=== PATIENT | female | born 1970 | race Caucasian/White ===

== ENCOUNTER 2022-04-09 18:50 | Emergency (ER) | payer BC ==
[~2022-04-09] VITALS: Ht 170.2 cm; Wt 92.5 kg
[2022-04-09] MEDS ORDERED: diphenhydrAMINE 50 MG/ML VIAL IVP ONE (19:15)
[2022-04-09] MEDS ORDERED: methylPREDNISolone SOD SUCC PF 125 MG/2 ML VIAL. IV ONE (19:15)
--- NOTE | 2022-04-09 19:26 | PHYS DOC ---
General Adult EDM: Chief Complaint: ALLERGIC REACTION HPI: HPI: Patient is a 51-year-old female coming in for upper lip swelling that started over 8 hours prior to arrival. Patient been starting to expand towards her nose. Denies any tongue or throat swelling. Patient is a history of allergic reactions involve eye swelling or hives. Patient was started on Cipro for urinary tract infection 3 days ago. Has had Cipro multiple times in the past. Patient also takes lisinopril for years. Review of Systems: Review of Systems: All other systems within normal limits except for as noted in the HPI Current Medications: Current Meds: Current Medications Medications (Trade) Dose Ordered Sig/Bony Start Time Stop Time Status Last Admin Dose Admin Diphenhydramine HCl (Benadryl) 50 mg 1X ONCE 04/09/22 19:15 04/09/22 19:16 UNV Epinephrine HCl (EPINEPHrine AMPULE) 0.3 mg 1X ONCE 04/09/22 19:15 04/09/22 19:16 UNV Methylprednisolone Sodium Succinate (SOLU-Medrol 125MG VIAL) 125 mg 1X ONCE 04/09/22 19:15 04/09/22 19:16 UNV Physical Exam: PE: Constitutional: Well developed, well nourished, no acute distress, non-toxic appearance. [] HENT: Normocephalic, atraumatic, bilateral external ears normal, nose normal. Swelling of upper lip, no swelling of tongue or upper airway. [] Eyes: PERRLA, conjunctiva normal, no discharge. [] Neck: No rigidity, supple, no stridor. [] Cardiovascular: Regular rate and rhythm, brisk cap refill [] Lungs & Thorax: Non labored symmetric respirations, no tachypnea or respiratory distress [] Abdomen: Soft, nondistended. Skin: Warm, dry, no erythema, no rash. [] Back: Unremarkable Extremities: No deformities, range of motion grossly intact, no lower extremity edema [] Neurologic: Alert and oriented X 3, no focal deficits noted. [] Psychologic: Affect normal, judgement normal, mood normal. [] EKG: EKG: [] Radiology/Procedures: Radiology/Procedures: [] Heart Score: C/O Chest Pain: No Risk Factors: Risk Factors: DM, Current or recent (<one month) smoker, HTN, HLP, family history of CAD, obesity. Risk Scores: Score 0 - 3: 2.5% MACE over next 6 weeks - Discharge Home Score 4 - 6: 20.3% MACE over next 6 weeks - Admit for Clinical Observation Score 7 - 10: 72.7% MACE over next 6 weeks - Early Invasive Strategies Course & Med Decision Making: Course & Med Decision Making Patient symptoms began improving after the epinephrine was given. Observed in the emergency department. About 2 hours into observation patient's symptoms began getting worse, swelling has increased in the top lip it is now spreading to the bottom. Discussed with Dr. Gaspar and will transfer the patient to [place] for monitoring in the ICU for airway protection Dragon Disclaimer: Dragon Disclaimer: This electronic medical record was generated, in whole or in part, using a voice recognition dictation system. Departure Departure: Impression: Primary Impression: Angioedema Disposition: 02 [facility] Admitting Physician: Austin Gaspar Condition: GUARDED Referrals: KYLAH VINCENT MD (PCP) ZEYAD STATON MD April 09, 2022 19:26
[2022-04-09 19:58] LABS: BASO # 0.1 x10^3/uL (0.0-0.2); BASO % 1 % (0-3); EOS # 0.1 x10^3/uL (0.0-0.7); EOS % 1 % (0-3); HEMATOCRIT 36.6 % (36.0-47.0); HEMOGLOBIN 12.4 g/dL (12.0-15.5); LYMPH # 1.8 x10^3/uL (1.0-4.8); LYMPH % 19 % (24-48); MEAN CORPUSCULAR HEMOGLOBIN 27 pg (25-35); MEAN CORPUSCULAR HGB CONC 34 g/dL (31-37); MEAN CORPUSCULAR VOLUME 81 fL (79-100); MONO # 0.7 x10^3/uL (0.0-1.1); MONO % 7 % (0-9); NEUT # 6.8 x10^3uL (1.8-7.7); NEUT % 72 % (31-73); PLATELET COUNT 335 x10^3/uL (140-400); RED BLOOD COUNT 4.54 x10^6/uL (3.50-5.40); RED CELL DISTRIBUTION WIDTH 14.3 % (11.5-14.5); WHITE BLOOD COUNT 9.4 x10^3/uL (4.0-11.0)
[2022-04-09 20:00] LABS: CALCIUM 8.8 mg/dL (8.5-10.1); CREATININE 1.9 mg/dL (0.6-1.0); GFR 27.9; POTASSIUM 3.6 mmol/L (3.5-5.1)
[2022-04-09 20:05] LABS: ALBUMIN/GLOBULIN RATIO 0.8 (1.0-1.7); TOTAL BILIRUBIN 0.4 mg/dL (0.2-1.0); TOTAL PROTEIN 6.9 g/dL (6.4-8.2)
[2022-04-09 22:30] VITALS: BP 104/56
== END 2022-04-09 23:11 | disposition short-term general hospital (02) ==
LOC: ER 18:50
DX: T78.3XXA Angioneurotic edema, initial encounter (principal); X58.XXXA Exposure to other specified factors, initial encounter
CPT/HCPCS: 36415; 80053; 85025; 96372; 96374; 96375; 99285; J0171; J1200; J2930

== ENCOUNTER 2022-04-20 09:12 | Emergency (ER) | payer BC ==
[~2022-04-20] VITALS: Ht 170.2 cm; Wt 89.5 kg
[2022-04-20] MEDS ORDERED: IV RINGERS SOLUTION,LACTATED 1,000 ML IV ONE ×2 (09:30→17:45)
--- NOTE | 2022-04-20 09:36 | PHYS DOC ---
Past History Past Surgical History: Gastric Bypass, Other Additional Past Surgical Histo: kidney transplant Alcohol Use: None General Adult EDM: Chief Complaint: ALTERED MENTAL STATUS HPI: HPI: Patient is a 51-year-old female sent in from primary care office via EMS for concerns for sepsis. Patient has had lower than usual blood pressures and altered mental status this morning. Patient states that for the past 2 weeks she has had watery diarrhea about 4-5 times per day. Also complained of epigastric abdominal pain, denies any known fevers or vomiting. Patient was hospitalized about 2 weeks ago for angioedema associated with ERUM inhibitor. Patient has a history of renal transplant at and is currently immunosuppressed. Patient states she completed antibiotics for urinary tract infection, think she was taking ciprofloxacin Review of Systems: Review of Systems: All other systems within normal limits except for as noted in the HPI Current Medications: Current Meds: Current Medications Medications (Trade) Dose Ordered Sig/Bony Start Time Stop Time Status Last Admin Dose Admin Lactated Ringer's 1,000 ml @ 1,000 mls/hr 1X ONCE 04/20/22 09:30 04/20/22 10:29 UNV Allergies: Allergies: Allergies Coded Allergies Type Severity Reaction Last Updated Verified lisinopril Allergy Severe 04/20/22 Yes Penicillins Allergy Unknown 04/09/22 Yes iodine Allergy Unknown 04/09/22 Yes legumes Allergy Unknown 04/09/22 Yes psyllium Allergy Unknown 04/09/22 Yes sulfamethoxazole Allergy Unknown 04/09/22 Yes trimethoprim Allergy Unknown 04/09/22 Yes Physical Exam: PE: Constitutional: Well developed, well nourished, no acute distress, non-toxic appearance. [] HENT: Normocephalic, atraumatic, bilateral external ears normal, nose normal. [] Eyes: PERRLA, conjunctiva normal, no discharge. [] Neck: No rigidity, supple, no stridor. [] Cardiovascular: Regular rate and rhythm, brisk cap refill [] Lungs & Thorax: Non labored symmetric respirations, no tachypnea or respiratory distress [] Abdomen: Soft, nondistended, epigastric tenderness without guarding. Skin: Warm, dry, no erythema, no rash. [] Back: Unremarkable Extremities: No deformities, range of motion grossly intact, no lower extremity edema [] Neurologic: Alert and oriented X 3, no focal deficits noted. [] Psychologic: Affect normal, judgement normal, mood normal. [] Current Patient Data: Vital Signs: Vital Signs Date Time Temp Pulse Resp B/P (MAP) Pulse Ox O2 Delivery O2 Flow Rate FiO2 04/20/22 09:29 98.7 93 18 112/66 (81) 100 Room Air EKG: EKG: [] Radiology/Procedures: Radiology/Procedures: [address] [address] IMAGING REPORT Signed PATIENT: NICKY CAMPBELL ACCOUNT: [id number] : 1970 LOCATION: ER AGE: 51 SEX: F EXAM STATUS: REG ER ORD. PHYSICIAN: ZEYAD STATON MD REASON: epigastric pain PROCEDURE: CT ABDOMEN PELVIS WO CONTRAST EXAMINATION: CT ABDOMEN+PELVIS WO INDICATION: Reason: epigastric pain / Spl. Instructions: / History: COMPARISON: None TECHNIQUE: CT images were acquired through the abdomen and pelvis. Sagittal and coronal reformatted series were provided. FINDINGS: Lung Bases: Lung bases are clear. Abdomen: The evaluation of the solid organs is limited due to lack of IV contrast. The evaluation of bowel is limited due to lack of oral contrast. Liver: Portable Gallbladder & Biliary System: Gallbladder is distended with innumerable stones. No pericholecystic inflammatory changes. No biliary ductal dilation. Spleen: Unremarkable Pancreas: Unremarkable Adrenal Glands: Unremarkable Kidneys: Bilateral [place] kidneys are extremely atrophic. Transplant kidney in the right pelvis with nonspecific perinephric stranding. No hydronephrosis or nephrolithiasis. 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 No evidence of bowel obstruction or focal inflammatory changes. Lymph Nodes: No pathologically enlarged adenopathy. Vasculature: There is normal in course and caliber. Other: No free intra-abdominal air or free fluid. Pelvis: Bladder: Mildly distended with mild wall thickening. There is a mild amount of perivesical stranding. Reproductive Organs: Uterus is absent. No suspicious adnexal masses. Lymph Nodes: Unremarkable Other: No significant free pelvic fluid. Body Wall: Unremarkable. Partially calcified subcutaneous nodules in the left posterior gluteal region favors injection granulomas Bones: No acute or suspicious osseous abnormalities IMPRESSION: 1. Mild urinary bladder wall thickening with mild perivesical stranding. Recom mend correlation with urinalysis to exclude cystitis. 2. Cholelithiasis. 3. Unremarkable appearance of Giorgi-en-Y gastric bypass on this noncontrast exam. PRQS compliance statement - One or more of the following individualized dose reduction techniques were utilized for this study: 1. Automated exposure control 2. Adjustment of the mA and/or kV according to patient size 3. Use of iterative reconstruction technique Electronically signed by: Guille Ramirez DO (04/20/2022 10:50 AM) [id number] DICTATED AND SIGNED BY: GUILLE RAMIREZ DO DATE: 04/20/22 1036 CC: ZEYAD STATON MD; KYLAH VINCENT MD ~ [] Heart Score: C/O Chest Pain: No Risk Factors: Risk Factors: DM, Current or recent (<one month) smoker, HTN, HLP, family history of CAD, obesity. Risk Scores: Score 0 - 3: 2.5% MACE over next 6 weeks - Discharge Home Score 4 - 6: 20.3% MACE over next 6 weeks - Admit for Clinical Observation Score 7 - 10: 72.7% MACE over next 6 weeks - Early Invasive Strategies Course & Med Decision Making: Course & Med Decision Making Pertinent Labs and Imaging studies reviewed. (See chart for details) Patient transferred to [facility] due to history of renal transplant. Antibiotics and potassium initiated in emergency department. Accepted at by Dr. Rea [] Jacinda Disclaimer: Jacinda Disclaimer: This electronic medical record was generated, in whole or in part, using a voice recognition dictation system. Departure Departure: Impression: Primary Impression: Sepsis due to urinary tract infection Additional Impression: Hypokalemia Disposition: 02 [facility] Condition: STABLE Referrals: KYLAH VINCENT MD (PCP) ZEYAD STATON MD April 20, 2022 09:36
[2022-04-20 10:05] LABS: BASO % 0 % (0-3); EOS % 0 % (0-3); HEMATOCRIT 34.9 % (36.0-47.0); HEMOGLOBIN 11.6 g/dL (12.0-15.5); LYMPH # 0.7 x10^3/uL (1.0-4.8); LYMPH % 4 % (24-48); MEAN CORPUSCULAR HEMOGLOBIN 27 pg (25-35); MEAN CORPUSCULAR HGB CONC 33 g/dL (31-37); MEAN CORPUSCULAR VOLUME 81 fL (79-100); MONO # 1.6 x10^3/uL (0.0-1.1); MONO % 8 % (0-9); NEUT # 18.2 x10^3uL (1.8-7.7); NEUT % 89 % (31-73); PLATELET COUNT 257 x10^3/uL (140-400); RED BLOOD COUNT 4.33 x10^6/uL (3.50-5.40); RED CELL DISTRIBUTION WIDTH 14.7 % (11.5-14.5); WHITE BLOOD COUNT 20.6 x10^3/uL (4.0-11.0)
[2022-04-20 10:29] LABS: ALBUMIN/GLOBULIN RATIO 1.2 (1.0-1.7); CALCIUM 8.1 mg/dL (8.5-10.1); CREATININE 1.8 mg/dL (0.6-1.0); GFR 29.7; MAGNESIUM 1.5 mg/dL (1.8-2.4); PHOSPHORUS 2.4 mg/dL (2.6-4.7); TOTAL BILIRUBIN 0.6 mg/dL (0.2-1.0); TOTAL PROTEIN 5.6 g/dL (6.4-8.2)
[2022-04-20 10:35] LABS: POTASSIUM 2.7 mmol/L (3.5-5.1)
--- NOTE | 2022-04-20 10:53 | RAD ---
EXAMINATION: CT ABDOMEN+PELVIS WO INDICATION: Reason: epigastric pain / Spl. Instructions: / History: COMPARISON: None TECHNIQUE: CT images were acquired through the abdomen and pelvis. Sagittal and coronal reformatted s eries were provided. FINDINGS: Lung Bases: Lung bases are clear. Abdomen: The evaluation of the solid organs is limited due to lack of IV contrast. The evaluation of bowel is limited due to lack of oral contrast. Liver: Portable Gallbladder & Biliary System: Gallbladder is distended with innumerable stones. No pericholecystic in flammatory changes. No biliary ductal dilation. Spleen: Unremarkable Pancreas: Unremarkable Adrenal Glands: Unremarkable Kidneys: Bilateral [place] kidneys are extremely atrophic. Transplant kidney in the right pelvis with nonspecific perinephric stranding. No hydronephrosis or nephrolithiasis. 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 No evidence of bowel obstruction or focal inf lammatory changes. Lymph Nodes: No pathologically enlarged adenopathy. Vasculature: There is normal in course and caliber. Other: No free intra-abdominal air or free fluid. Pelvis: Bladder: Mildly distended with mild wall thickening. There is a mild amount of perivesical stranding. Reproductive Organs: Uterus is absent. No suspicious adnexal masses. Lymph Nodes: Unremarkable Other: No significant free pelvic fluid. Body Wall: Unremarkable. Partially calcified subcutaneous nodules in the left posterior gluteal regio n favors injection granulomas Bones: No acute or suspicious osseous abnormalities IMPRESSION: 1. Mild urinary bladder wall thickening with mild perivesical stranding. Recommend correlation with u rinalysis to exclude cystitis. 2. Cholelithiasis. 3. Unremarkable appearance of Giorgi-en-Y gastric bypass on this noncontrast exam. PRQS compliance statement - One or more of the following individualized dose reduction techniques wer e utilized for this study: 1. Automated exposure control 2. Adjustment of the mA and/or kV according to patient size 3. Use of iterative reconstruction technique Electronically signed by: Rob Ramirez DO (04/20/2022 10:50 AM) [id number]
[2022-04-20 11:00] LABS: INFLUENZA A PATIENT NEGATIVE (NEGATIVE); INFLUENZA B PATIENT NEGATIVE (NEGATIVE)
[2022-04-20] MEDS ORDERED: CIPROFLOXACIN 400MG PREMIX 200 ML IV ONE (11:00)
[2022-04-20] MEDS: POTASSIUM CHLORIDE 20MEQ 100 ML IV SCH ×2 (12:20→15:50)
[2022-04-20 12:23] LABS: CLARITY,URINE HAZY; COLOR,URINE YELLOW; GLUCOSE,URINE NEG (NEG)
[2022-04-20 12:24] LABS: NITRITE,URINE NEG (NEG); UROBILINOGEN,URINE 0.2 mg/dL (0.2 mg/dL)
[2022-04-20 12:27] LABS: BACTERIA,URINE MOD /HPF (0-FEW); GRANULAR CASTS,URINE MOD /HPF; SQUAMOUS EPITHELIAL CELL,UR FEW /LPF; WBC,URINE >40 /HPF (0-4)
[2022-04-20 13:00] LABS: % BANDS 5 % (0-9); % LYMPHS 5 % (24-48); % MONOS 6 % (0-10); % SEGS 84 % (35-66); PLT ESTIMATE ADEQUATE (ADEQUATE)
[2022-04-20 18:03] VITALS: BP 127/67
== END 2022-04-20 18:31 | disposition short-term general hospital (02) ==
LOC: ER 09:12
DX: A41.9 Sepsis, unspecified organism (principal); N39.0 Urinary tract infection, site not specified; E87.6 Hypokalemia; Z20.822 Contact with and (suspected) exposure to COVID-19; Z98.84 Bariatric surgery status; Z94.0 Kidney transplant status; Z88.0 Allergy status to penicillin; Z88.2 Allergy status to sulfonamides; Z88.1 Allergy status to other antibiotic agents; Z88.8 Allergy status to other drugs, medicaments and biological substances
CPT/HCPCS: 74176; 80053; 81001; 82803; 83605; 83690; 83735; 83880; 84100; 84484; 85007; 85025; 87040; 87077; 87086; 87186; 87428; 96361; 96365; 96366; 96368; 99285; C9803; J0744; J3480; J7120; U0003